=== PATIENT | female | born 1995 | race Two or more races ===

== ENCOUNTER 2016-03-13 15:05 | Emergency (ER) | payer OTHER ==
[~2016-03-13] VITALS: Ht 162.6 cm; Wt 63.5 kg
[~2016-03-13 15:05] MED LIST: ALBUTEROL SULF8.5 GM INH; KEFLEX500 MG ORAL; PREDNISONE20 MG ORAL
[2016-03-13] MEDS ORDERED: Lidocaine HCl 2% Jelly 5ml Tube TOPIC ONE (16:00)
--- NOTE | 2016-03-13 16:02 | Emergency Room Report ---
History of Present Illness General Chief Complaint: Pain Source: Patient Present Illness HPI 20-year-old female presents emergency department complaining of acute onset 10 / 10 in severity rectal pain from and related x2 days. Patient denies constipation reports recent episodes of diarrhea. She denies straining or heavy lifting. She reports history of hemorrhoids however states they've never been this painful. She denies blood in the stool or black tarry stools. Patient denies abdominal pain nausea, vomiting, fevers or chills. She states she's been using Preparation H with no relief. Denies CP, Palpitations, LOC, AMS , dizziness, Changes in Vision, Sensation, paresthesias, or a sudden severe headache. Allergies: Coded Allergies: No Known Allergies (Unverified , 05/17/14) Patient History Past Medical History: see triage record Past Surgical History: none Pertinent Family History: none Last Menstrual Period: 03/01/16 Now: No Reviewed Nursing Documentation: PMH: Agreed, PSxH: Agreed Nursing Documentation-PMH Hx Asthma: Yes Review of Systems All Other Systems: negative except mentioned in HPI Physical Exam Vital Signs Date Time Temp Pulse Resp B/P Pulse Ox O2 Delivery O2 Flow Rate FiO2 03/13/16 15:12 98.2 82 15 118/79 97 Room Air Sp02 EP Interpretation: reviewed, normal General Appearance: no apparent distress, alert, GCS 15, non-toxic Head: normocephalic, atraumatic Eyes: bilateral eye PERRL, bilateral eye normal inspection ENT: hearing grossly normal, normal pharynx, no angioedema, normal voice Neck: full range of motion, supple/symm/no masses Respiratory: chest non-tender, lungs clear, normal breath sounds, speaking full sentences Cardiovascular #1: regular rate, rhythm, no edema Cardiovascular #2: 2+ carotid (R), 2+ carotid (L), 2+ radial (R), 2+ radial (L) , 2+ dorsalis pedis (R), 2+ dorsalis pedis (L) Gastrointestinal: normal bowel sounds, non tender, soft, no guarding, no rebound Rectal: deferred, hemorrhoids - thrombosed purple 1cm hemorrhoid located on the 4 o"Clock position of the external anus. Genitourinary: normal inspection, no CVA tenderness Musculoskeletal: back normal, gait/station normal, normal range of motion, non- tender, no calf tenderness Neurologic: alert, oriented x3, responsive, motor strength/tone normal, sensory intact, speech normal Psychiatric: judgement/insight normal, memory normal, mood/affect normal, no suicidal/homicidal ideation Reflexes: 4+ bicep (R), 4+ bicep (L), 4+ tricep (R), 4+ tricep (L), 4+ knee (R) , 4+ knee (L) Skin: normal color, no rash, warm/dry, well hydrated Lymphatic: no adenopathy Procedures Incision and Drainage Incision and Drainage : Consent: Verbal Site: thrombosed hemorrhoid in the 4 o'clock position of the external anus Blade Size: 11 I & D Procedure: betadine prep Wound Location: other - rectum Wound's Depth, Shape: superficial Wound Length (cm): 0 Wound Explored: large clot is removed Anesthesia: Lidocaine w/ Epi Volume Anesthetic (ccs): 2 Splint Applied?: No Sling Applied?: No Patient Tolerated: Well Complications: None Medical Decision Making PA Attestation Dr. Vasquez is my supervising Physician whom patient management has been discussed with. Diagnostic Impression: Primary Impression: Thrombosed external hemorrhoid ER Course Pt. presents to the ED c/o rectal pain with tender swollen hemorrhoid in pain x 2 days. - Denies blood, reports recent hx of diarrhea. Ddx considered but are not limited to constipation , anal fissure, perianal abscess, rectal wall tear, thrombosed hemorrhoid, hemorrhoid. Vital signs: are WNL, pt. is afebrile H&PE are most consistent with thrombosed hemorrhoid , no evidence of infeciton at this time. ORDERS: none required at this time. ED INTERVENTIONS: -I & D of thrombosed hemorrhoid.- see procedure note. Discussed the patient's self care interventions for hemorrhoids DISCHARGE: At this time pt. is stable for d/c to home with oral analgesia, ABX, and stool softener for PRN use. Will provide printed patient care instructions, and any necessary prescriptions. Care plan and follow up instructions have been discussed with the patient prior to discharge. Last Vital Signs Date Time Temp Pulse Resp B/P Pulse Ox O2 Delivery O2 Flow Rate FiO2 03/13/16 15:12 98.2 82 15 118/79 97 Room Air Disposition: HOME, SELF-CARE Condition: Stable Scripts Acetaminophen* (TYLENOL EXTRA STRENGTH*) 500 Mg Tablet 500 MG ORAL Q6H, #30 TAB 0 Refills Prov: Claudia Jean 03/13/16 Metronidazole* (FLAGYL*) 500 Mg Tablet 500 MG ORAL BID, #14 TAB 0 Refills Prov: Claudia Jean 03/13/16 Trimethoprim/Sulfamethoxazole 160/800* (BACTRIM DS TABLET*) 1 Each Tablet 1 TAB ORAL TWICE A DAY for 7 Days, #14 TAB Prov: Claudia Jean 03/13/16 Docusate Sodium* (COLACE*) 100 Mg Capsule 100 MG ORAL TWICE A DAY for 5 Days, #15 CAP Prov: Claudia Jean 03/13/16 Referrals: [facility] (PCP) Patient Instructions: Hemorrhoids, Surgical Procedures for Hemorrhoids, Surgical Procedures for Hemorrhoids, Care After Additional Instructions: Take medications as directed. Follow up with PCP in 3-5 days Return sooner to ED if new symptoms occur, or current symptoms become worse. Claudia Jean Mar 13, 2016 16:02
[2016-03-13] MEDS ORDERED: Lidocaine 1% 10mg/ml/Epi 0.005mg/ml 30ml vial INJ ONE (16:15)
[2016-03-13] MEDS ORDERED: BACTRIM DS TAB1 EAC1 ORAL (16:50)
[2016-03-13] MEDS ORDERED: METRONIDAZOLE500 MG ORAL (16:50)
[2016-03-13] MEDS ORDERED: COLACE100 MG ORAL (16:50)
[2016-03-13] MEDS ORDERED: TYLENOL EXTRA500 MG ORAL (16:51)
[2016-03-13 16:55] VITALS: BP 109/74
[2016-03-13] MEDS ORDERED: Bacitracin Oint UD TOPIC ONE (17:00)
== END 2016-03-13 16:59 | disposition home or self-care (01) ==
LOC: EMR 15:34
DX: K64.5 Perianal venous thrombosis (principal); J45.909 Unspecified asthma, uncomplicated
CPT/HCPCS: 10060

== ENCOUNTER 2017-08-24 13:32 | Emergency (ER) | payer SELFPAY ==
[~2017-08-24] VITALS: Ht 157.5 cm; Wt 62.1 kg
[~2017-08-24 13:32] MED LIST changes: +BACTRIM DS TAB1 EAC1 ORAL; +COLACE100 MG ORAL; +METRONIDAZOLE500 MG ORAL; +TYLENOL EXTRA500 MG ORAL
[2017-08-24 13:37] VITALS: BP 116/77
[2017-08-24] MEDS ORDERED: Lidocaine 1% MPF 10mg/ml 5ml INJ ONE (14:00)
[2017-08-24] MEDS ORDERED: Azithromycin 250mg tab ORAL ONE (14:00)
--- NOTE | 2017-08-24 14:01 | Emergency Room Report ---
History of Present Illness General Chief Complaint: Abdominal Pain Source: Patient, Medical Record Present Illness HPI 22-year-old female patient presents ER complaining of diarrhea and requesting treatment for possible STI. Reports she was sexually active about 2 weeks ago, states she denies protection. Denies any symptoms, denies dysuria, hematuria, vaginal discharge. Reports has an IUD for control. Denies concern for . denies fever, chest pain, shortness of breath, abdominal pain. Reports diarrhea for 3 days, watery. Denies recent travel or blood in his stool or diarrhea. Reports eats a lot of spicy foods. reports uses one Bactrim pill intermittently for treatment of UTI. denies vomiting. denies rash. Allergies: Coded Allergies: No Known Allergies (Unverified , 05/17/14) Patient History Past Medical History: see triage record Last Menstrual Period: 08/14/17 Reviewed Nursing Documentation: PMH: Agreed; PSxH: Agreed Nursing Documentation-PMH Past Medical History: No History, Except For Hx Asthma: Yes Review of Systems All Other Systems: negative except mentioned in HPI Physical Exam Vital Signs Date Time Temp Pulse Resp B/P (MAP) Pulse Ox O2 Delivery O2 Flow Rate FiO2 08/24/17 13:37 98.2 87 18 116/77 95 Room Air 98.2 Sp02 EP Interpretation: reviewed, normal General Appearance: well appearing, no apparent distress, alert, GCS 15, non- toxic Head: normocephalic, atraumatic Eyes: bilateral eye normal inspection, bilateral eye PERRL ENT: hearing grossly normal, normal pharynx, no angioedema, normal voice, uvula midline, moist mucus membranes Respiratory: lungs clear, normal breath sounds, no rhonchi, no respiratory distress, no accessory muscle use, no wheezing, speaking full sentences Cardiovascular #1: regular rate, rhythm, no edema Gastrointestinal: non tender, soft, no mass, non-distended, no guarding, no rebound Genitourinary: no CVA tenderness Musculoskeletal: back normal, digits/nails normal, gait/station normal, normal range of motion, non-tender Psychiatric: mood/affect normal Skin: no rash Medical Decision Making PA Attestation Dr. Pablo is my supervising Physician whom patient management has been discussed with. Diagnostic Impression: Primary Impression: Diarrhea Additional Impression: Contact with and (suspected) exposure to infections with a predominantly sexual mode of transmission ER Course Pt. presents to the ED c/o STI. Ddx considered but are not limited to gonorrhea, chalmydia, cystitis, pylonephritis. Vital signs: are WNL, pt. is afebrile ER COURSE: Ordered Azithromycin and Rocephin for coverage of gonorrhea and chlamydia. Informed patient that should report for HIV and syphilis testing, not currently being treated at this time in ER. Patient instructed to follow with STI clinic or PCP for testing. Instructed to wear condoms during sex. Instructed to avoid sexual activity for the next 2 weeks. Instructed to inform partners of need for testing and possible treatment. follow-up with PCP and/or STI clinic for testing . Diarrhea likely viral in cause. Drink plenty of fluids to avoid dehydration. No recent travel or blood in stool, does not require treatment with antibiotics. Advised patient on BRAT diet: bananas, rice, apple sauce, toast. follow-up with and request referral to GI as needed. DISCHARGE: Patient is resting comfortably, in no acute distress, nontoxic appearing, talking without difficulty. Patient to take medications as instructed Will provide with patient care instructions and any necessary prescriptions. Care plan and follow-up instructions provided. Patient instructed to follow-up with primary care provider in 3 - 5 days. Patient questions asked and answered. Patient reports understanding and agreement to treatment plan. ER precautions given. Patient instructed to return to ER immediately for any new or worsening of symptoms including but not limited to increasing SOB, persistent fever. - Please note that this Emergency Department Report was dictated using [employer] worker technology software, occasionally this can lead to erroneous entry secondary to interpretation by the dictation equipment. Last Vital Signs Date Time Temp Pulse Resp B/P (MAP) Pulse Ox O2 Delivery O2 Flow Rate FiO2 08/24/17 13:37 98.2 87 18 116/77 95 Room Air 98.2 Disposition: HOME, SELF-CARE Condition: Stable Patient Instructions: Diarrhea, Adult, [id number], Sexually Transmitted Disease, [id number] Additional Instructions: Followup with primary care provider in 3 -5 days. Followup with GI specialist. Avoid spicy and dairy foods. Drink plenty of fluids. BRAT diet: bananas, rice, apple sauce, toast. Patient questions asked and answered. ER precautions given, patient instructed to return to ER immediately for any new or worsening of symptoms. Advised to use safe sex practices including but not limited to use of condoms. Avoid sexual activity for 2 weeks. Wear condoms during sex. Instructed patient to follow up with STI clinic and/or PCP for future STI treatment and prevention. Instructed patient to inform partner of need for treatment to prevent future infection. Ashwin Ferrer Aug 24, 2017 14:01
[2017-08-24 14:17] VITALS: BP 116/77
== END 2017-08-24 14:18 | disposition home or self-care (01) ==
LOC: EMR 13:59
DX: R19.7 Diarrhea, unspecified (principal); Z20.2 Contact with and (suspected) exposure to infections with a predominantly sexual mode of transmission; J45.909 Unspecified asthma, uncomplicated
CPT/HCPCS: 96372; 96374; 99283; J0696

== ENCOUNTER 2018-03-13 15:41 | Emergency (ER) | payer SELFPAY ==
[~2018-03-13] VITALS: Ht 157.5 cm; Wt 61.2 kg
[~2018-03-13 15:41] MED LIST changes: +CEPHALEXIN500 MG ORAL; +DIFLUCAN150 MG PO
[2018-03-13] MEDS ORDERED: NKM (15:48)
--- NOTE | 2018-03-13 15:58 | Emergency Room Report ---
History of Present Illness General Chief Complaint: Upper Extremity Injury Source: Patient Present Illness HPI 22-year-old female presents to the emergency department complaining of localized 8 out of 10 in severity pain, bruising and swelling to the left wrist and hand since yesterday. Patient reports that she had a fall during the night she does not recall exactly how she fell but she states she did not hit her head and did not lose consciousness. Patient states she believes she put her hand out to the fall. Patient reports pain with movement of her fingers with attempts to extend them and with palpation. Patient has not taken any medication for her symptoms she is right-hand dominant and denies previous injury to this extremity. Denies numbness tingling or loss of sensation or gross motor movements of the extremities. Denies neck or back pain. Allergies: Coded Allergies: No Known Allergies (Unverified , 12/28/17) Patient History Past Medical History: see triage record Past Surgical History: none Pertinent Family History: none Reviewed Nursing Documentation: PMH: Agreed; PSxH: Agreed Nursing Documentation-PMH Past Medical History: No History, Except For Hx Asthma: Yes Review of Systems All Other Systems: negative except mentioned in HPI Physical Exam Vital Signs Date Time Temp Pulse Resp B/P (MAP) Pulse Ox O2 Delivery O2 Flow Rate FiO2 03/13/18 15:43 98.1 88 16 110/75 99 Sp02 EP Interpretation: reviewed, normal General Appearance: alert, GCS 15, non-toxic, mild distress Head: normocephalic, atraumatic Eyes: bilateral eye normal inspection, bilateral eye PERRL ENT: hearing grossly normal, normal voice Neck: full range of motion Respiratory: lungs clear, normal breath sounds, speaking full sentences Cardiovascular #1: regular rate, rhythm, normal capillary refill Cardiovascular #2: 2+ radial (R), 2+ radial (L) Musculoskeletal: back normal, gait/station normal, normal range of motion, tender - TTP left wrist, and carpal bones of the left hand. Swelling and bruising noted, pain with ROM. + Snuff Box TTP. Neurologic: alert, oriented x3, responsive, motor strength/tone normal, sensory intact, speech normal, grossly normal Psychiatric: judgement/insight normal Skin: normal color, no rash, warm/dry, well hydrated, other - LEft wrist and hand bruises Medical Decision Making PA Attestation Dr. Hanson is my supervising Physician whom patient management has been discussed with. Diagnostic Impression: Primary Impression: Contusion of wrist, left Qualified Codes: S60.212A - Contusion of left wrist, initial encounter Additional Impressions: Left wrist sprain Qualified Codes: S63.502A - Unspecified sprain of left wrist, initial encounter Contusion, hand Qualified Codes: S60.222A - Contusion of left hand, initial encounter ER Course 22-year-old female presents to the emergency department complaining of localized 8 out of 10 in severity pain, bruising and swelling to the left wrist and hand since yesterday. Patient reports that she had a fall during the night she does not recall exactly how she fell but she states she did not hit her head and did not lose consciousness. Patient states she believes she put her hand out to the fall. Patient reports pain with movement of her fingers with attempts to extend them and with palpation. Patient has not taken any medication for her symptoms she is right-hand dominant and denies previous injury to this extremity. Denies numbness tingling or loss of sensation or gross motor movements of the extremities. Denies neck or back pain. Ddx considered but are not limited to Fracture, dislocation, contusion, Sprain/ Strain/Spasm, scaphoid fx just to name a few. Vital signs: are WNL, pt. is afebrile H&PE are most consistent with musculoskeletal injury will perform imaging to r/ o fractures/dislocations. ---Due to patient having snuffbox tenderness she will be splinted and treated as if there is a scaphoid fracture. ORDERS: - X-ray Left hand and Wrist 3 views each. - negative for fx, Dislocation, or significant soft tissue injury, per preliminary read in ED, and signed by ERNST Jean, my supervising physician has reviewed, and agrees with my interpretation. ED INTERVENTIONS: - Tylenol PO - Thumb Spika Splint applied by morgue technician. Pt. remains neurovascularly intact. DISCHARGE: At this time pt. is stable for d/c to home. Will provide printed patient care instructions, and any necessary prescriptions. Care plan and follow up instructions have been discussed with the patient prior to discharge. Other X-Ray Diagnostic Results Other X-Ray Diagnostic Results #1: X-Ray ordered: Left WRist # of Views/Limited Vs Complete: 3 View Indication: Pain EP Interpretation: Yes ERNST Xray: Interpretation reviewed, by supervising MD, and agrees with findings. Electronically Signed by: Claudia Jean PA-C Other X-Ray Diagnostic Results #2: X-Ray ordered: Left Hand # of Views/Limited Vs Complete: 3 View Indication: Pain EP Interpretation: Yes ERNST Xray: Interpretation reviewed, by supervising MD, and agrees with findings. Interpretation: no dislocation, no soft tissue swelling, no fractures Impression: No acute disease Electronically Signed by: Claudia Jean PA-C Last Vital Signs Date Time Temp Pulse Resp B/P (MAP) Pulse Ox O2 Delivery O2 Flow Rate FiO2 03/13/18 15:43 98.1 88 16 110/75 99 Disposition: HOME, SELF-CARE Condition: Stable Scripts Ibuprofen* (MOTRIN*) 600 Mg Tablet 600 MG ORAL THREE TIMES A DAY, #30 TAB 0 Refills Prov: Claudia Jean 03/13/18 Patient Instructions: Contusion, [id number], Wrist Sprain Additional Instructions: Take medications as directed. Will need to have repeat x-rays performed by specialist or your primary care provider --> to rule out scaphoid fracture in approximately 2-3 weeks. Follow up with an YARD PERSON in 3-5 days, even if your symptoms have resolved. If symptoms persist MRI may be required at the discretion of your PCP or Ortho Specialist. --Please review list of primary care clinics, if you do not already have a primary care provider who can give you an Orthopedic Referral. Return sooner to ED if new symptoms occur, or current symptoms become worse. Do not drink alcohol, drive, or operate heavy machinery while taking Orting as this may cause drowsiness. - Please note that this Emergency Department Report was dictated using [employer] clerk technology software, occasionally this can lead to erroneous entry secondary to interpretation by the dictation equipment. Claudia Jean Mar 13, 2018 15:58
[2018-03-13 16:32] VITALS: BP 111/79
[2018-03-13] MEDS ORDERED: IBUPROFEN600 MG ORAL (16:44)
[2018-03-13 16:53] VITALS: BP 110/75
--- NOTE | 2018-03-14 08:42 | Diagnostic Imaging Report ---
Indication: Left wrist pain Findings: 3 views of the left wrist were obtained. No acute fractures, malalignment, erosions or periostitis are identified. Soft tissues are unremarkable. Impression: No acute findings.
--- NOTE | 2018-03-14 08:50 | Diagnostic Imaging Report ---
Indication: left hand pain. Findings: 3 views of the left hand were obtained. Normal alignment is demonstrated. No acute fractures, erosions, or periosteal reaction are seen. Soft tissues are unremarkable. Impression: No acute findings.
== END 2018-03-13 16:53 | disposition home or self-care (01) ==
LOC: EMR 15:54
DX: S60.212A Contusion of left wrist, initial encounter (principal); S63.502A Unspecified sprain of left wrist, initial encounter; S60.222A Contusion of left hand, initial encounter; W19.XXXA Unspecified fall, initial encounter; Y92.9 Unspecified place or not applicable
CPT/HCPCS: 29130; 99283

== ENCOUNTER 2018-06-09 15:26 | Emergency (ER) | payer MEDICAID ==
[~2018-06-09] VITALS: Ht 157.5 cm; Wt 54.4 kg
[~2018-06-09 15:26] MED LIST changes: +IBUPROFEN600 MG ORAL; +NKM
--- NOTE | 2018-06-09 15:47 | NUR ---
ED Nurse Note: pt walked in c/o lower abd pain since yesterday, pt states she has IUD in place and had sexual intercourse and started having dysuria as well, denies vaginal discharge nor bleeding, pt reports she is concerned about possible displacement of IUD. will cont monitor. ERMD at the bedside.
[2018-06-09 15:49] VITALS: BP 105/67
--- NOTE | 2018-06-09 15:54 | Emergency Room Report ---
History of Present Illness General Chief Complaint: Female Urogenital Problems Source: Patient Present Illness HPI Patient presents with 3 days of suprapubic pain and dysuria. In addition to that she had dyspareunia yesterday. She's had UTIs in the past but not had pain like this with UTIs. She denies any fevers or chills. She does feel dizzy when she stands and little bit nauseated. She has an IUD in place. Last period was normal but a long time ago. She is concerned that she might be at this time. The pain is rated 10/10. She drove herself here. No change in bowels. She has no discharge. In the past when she's had urinary tract infections there's been a discharge also. She is in a stable relationship. Last menses 6 months ago. H/O asthma - no wheezing, URI or chest pain Allergies: Coded Allergies: No Known Allergies (Unverified , 12/28/17) Patient History Past Medical History: see triage record Social History Narrative drove herself here Last Menstrual Period: IUD in place Now: No : 2 Para: 2 Reviewed Nursing Documentation: PMH: Agreed; PSxH: Agreed Nursing Documentation-PMH Hx Asthma: Yes Review of Systems All Other Systems: negative except mentioned in HPI Physical Exam Vital Signs Date Time Temp Pulse Resp B/P (MAP) Pulse Ox O2 Delivery O2 Flow Rate FiO2 06/09/18 15:35 98.1 85 18 105/67 99 Room Air Sp02 EP Interpretation: reviewed, normal General Appearance: well appearing, no apparent distress, GCS 15 Head: normocephalic Eyes: bilateral eye normal inspection, bilateral eye PERRL, bilateral eye EOMI ENT: moist mucus membranes Neck: supple Respiratory: lungs clear, normal breath sounds Cardiovascular #1: regular rate, rhythm Cardiovascular #2: 2+ radial (R) Gastrointestinal: normal inspection, normal bowel sounds, non tender, no mass, non-distended Genitourinary: ext genitalia/vag normal, other - minimal external inflammation , IUD present, + CMT Musculoskeletal: back normal, gait/station normal, normal range of motion Neurologic: alert, oriented x3 Skin: normal inspection, warm/dry Medical Decision Making Diagnostic Impression: Primary Impression: UTI (urinary tract infection) Qualified Codes: N30.00 - Acute cystitis without hematuria Additional Impressions: Pelvic pain PID (acute pelvic inflammatory disease) IUD (intrauterine device) in place ER Course Patient presents with suprapubic pain with an IUD. Differential includes UTI, PID, vaginosis, ectopic amongst others. Patient will be evaluated with labs including test. The patient will receive IV hydration as well as a dose of Tylenol. Pelvic exam is indicated. Based on pelvic exam PID is suspected. A test is not back yet. A dose of Rocephin is given IV. negative. Toradol and Flagyl given. Discussed with Dr. Baumann. States stable to observe as outpatient (particularly without fever or leukocytosis). Consideration for removal of IUD, but this can be done in follow up. Improved pain. Patient stable for outpatient observation and treatment. Laboratory Tests Test 06/09/18 16:00 White Blood Count 10.7 K/UL (4.8-10.8) Red Blood Count 4.71 M/UL (4.20-5.40) Hemoglobin 14.7 G/DL (12.0-16.0) Hematocrit 43.0 % (37.0-47.0) Mean Corpuscular Volume 91 FL (80-99) Mean Corpuscular Hemoglobin 31.2 PG (27.0-31.0) H Mean Corpuscular Hemoglobin Concent 34.2 G/DL (32.0-36.0) Red Cell Distribution Width 12.7 % (11.6-14.8) Platelet Count 210 K/UL (150-450) Mean Platelet Volume 6.1 FL (6.5-10.1) L Neutrophils (%) (Auto) 65.0 % (45.0-75.0) Lymphocytes (%) (Auto) 22.6 % (20.0-45.0) Monocytes (%) (Auto) 10.6 % (1.0-10.0) H Eosinophils (%) (Auto) 0.9 % (0.0-3.0) Basophils (%) (Auto) 0.9 % (0.0-2.0) Urine Color Yellow Urine Appearance Slightly cloudy Urine pH 7 (4.5-8.0) Urine Specific [place] 1.010 (1.005-1.035) Urine Protein 1+ (NEGATIVE) H Urine Glucose (UA) Negative (NEGATIVE) Urine Ketones 1+ (NEGATIVE) H Urine Blood 3+ (NEGATIVE) H Urine Nitrite Negative (NEGATIVE) Urine Bilirubin Negative (NEGATIVE) Urine Urobilinogen 4 MG/DL (0.0-1.0) H Urine Leukocyte Esterase 1+ (NEGATIVE) H Urine RBC 15-20 /HPF (0 - 2) H Urine WBC 5-10 /HPF (0 - 2) H Urine Squamous Epithelial Cells Few /LPF (NONE/OCC) Urine Bacteria Few /HPF (NONE) Urine Mucus Moderate /LPF (NONE/OCC) H Urine HCG, Qualitative Negative (NEGATIVE) Sodium Level 137 MMOL/L (136-145) Potassium Level 3.8 MMOL/L (3.5-5.1) Chloride Level 104 MMOL/L (98-107) Carbon Dioxide Level 25 MMOL/L (21-32) Anion Gap 8 mmol/L (5-15) Blood Urea Nitrogen 11 mg/dL (7-18) Creatinine 0.6 MG/DL (0.55-1.30) Estimate Glomerular Filtration Rate > 60 mL/min (>60) Glucose Level 97 MG/DL (74-106) Calcium Level 9.1 MG/DL (8.5-10.1) Total Bilirubin 0.3 MG/DL (0.2-1.0) Aspartate Amino Transferase (AST) 14 U/L (15-37) L Alanine Aminotransferase (ALT) 16 U/L (12-78) Alkaline Phosphatase 97 U/L (46-116) Total Protein 7.8 G/DL (6.4-8.2) Albumin 3.9 G/DL (3.4-5.0) Globulin 3.9 g/dL Albumin/Globulin Ratio 1.0 (1.0-2.7) Lipase 115 U/L (73-393) Microbiology Date/Time Source Procedure Growth Status 06/09/18 16:00 Vaginal Wet Prep - Final Complete Last Vital Signs Date Time Temp Pulse Resp B/P (MAP) Pulse Ox O2 Delivery O2 Flow Rate FiO2 06/09/18 18:59 98.7 70 16 108/94 98 Room Air Status: improved Disposition: HOME, SELF-CARE Condition: Improved Scripts Ibuprofen* (MOTRIN*) 600 Mg Tablet 600 MG ORAL Q6H PRN for For Pain, #20 TAB Prov: Rolly Turner MD 06/09/18 Tramadol Hcl* (ULTRAM*) 50 Mg Tablet 50 MG ORAL Q6H PRN for For Pain, #10 TAB 0 Refills Prov: Rolly Turner MD 06/09/18 Cephalexin* (KEFLEX*) 500 Mg Capsule 500 MG ORAL EVERY 6 HOURS, #28 CAP Prov: Rolly Turner MD 06/09/18 Metronidazole* (FLAGYL*) 500 Mg Tablet 500 MG ORAL TID, #21 TAB Prov: Rolly Turner MD 06/09/18 Rolly Turner MD Jun 09, 2018 15:54
[2018-06-09 16:24] LABS: APPEARANCE,URINE SLIGHTLY CLOUDY; BILIRUBIN, URINE NEGATIVE (NEGATIVE); GLUCOSE, URINE (UA) NEGATIVE (NEGATIVE); KETONES,URINE 1+ (NEGATIVE); LEUKOCYTE ESTERASE ,URINE 1+ (NEGATIVE); NITRITE,URINE NEGATIVE (NEGATIVE); PH,URINE 7 (4.5-8.0); PROTEIN,URINE 1+ (NEGATIVE); UROBILINOGEN,URINE 4 MG/DL (0.0-1.0)
[2018-06-09 16:29] LABS: BASOPHILS % (AUTO) 0.9 % (0.0-2.0); EOSINOPHILS % (AUTO) 0.9 % (0.0-3.0); HEMOGLOBIN 14.7 G/DL (12.0-16.0); LYMPHOCYTES % (AUTO) 22.6 % (20.0-45.0); MEAN CORPUSCULAR VOLUME 91 FL (80-99); MONOCYTES % (AUTO) 10.6 % (1.0-10.0); PLATELET COUNT 210 K/UL (150-450); RED BLOOD COUNT 4.71 M/UL (4.20-5.40); RED CELL DISTRIBUTION WIDTH 12.7 % (11.6-14.8); WHITE BLOOD COUNT 10.7 K/UL (4.8-10.8)
[2018-06-09 16:30] LABS: COLOR,URINE YELLOW
[2018-06-09] MEDS ORDERED: cefTRIAXone 1 GM in NS 55 ML IVPB ONE (16:30)
[2018-06-09 16:35] LABS: ANION GAP 8 mmol/L (5-15); BLOOD UREA NITROGEN 11 mg/dL (7-18); CALCIUM 9.1 MG/DL (8.5-10.1); CARBON DIOXIDE 25 MMOL/L (21-32); CHLORIDE 104 MMOL/L (98-107); CREATININE 0.6 MG/DL (0.55-1.30); POTASSIUM 3.8 MMOL/L (3.5-5.1); SODIUM 137 MMOL/L (136-145)
[2018-06-09 16:39] LABS: ALANINE AMINOTRANSFERASE 16 U/L (12-78); ALBUMIN 3.9 G/DL (3.4-5.0); ALKALINE PHOSPHATASE 97 U/L (46-116); ASPARTATE AMINO TRANSFERASE 14 U/L (15-37); BILIRUBIN,TOTAL 0.3 MG/DL (0.2-1.0)
[2018-06-09] MEDS ORDERED: Ketorolac 30mg Inj IV ONE (16:45)
[2018-06-09] MEDS ORDERED: METRONIDAZOLE500 MG ORAL (17:49)
[2018-06-09] MEDS ORDERED: IBUPROFEN600 MG ORAL (17:49)
[2018-06-09] MEDS ORDERED: TRAMADOL HCL50 MG ORAL (17:49)
[2018-06-09] MEDS ORDERED: CEPHALEXIN500 MG ORAL (17:49)
[2018-06-09 18:59] VITALS: BP 108/94
--- NOTE | 2018-06-09 19:00 | NUR ---
ED Nurse Note: pt cleared to be d/c per ERMD, pt d/c and aftercare instruction provided w/ prescription, pt education done via discussion and handout, pt advised to follow up with proof operator or return to ed if sx worsen or new sx develop, pt verbalized understanding and agrees with plan, vss, ambulatory w/ steady gait, iv d/c and wristband removed, pt left w/ all belongings.
== END 2018-06-09 18:59 | disposition home or self-care (01) ==
LOC: EMR 16:31
DX: N30.00 Acute cystitis without hematuria (principal); N73.9 Female pelvic inflammatory disease, unspecified; Z97.5 Presence of (intrauterine) contraceptive device; J45.909 Unspecified asthma, uncomplicated
CPT/HCPCS: 36415; 80053; 81003; 81025; 83690; 85025; 87210; 96361; 96365; 96368; 96375; 99284; J0696; J1885

== ENCOUNTER 2019-12-30 19:29 | Emergency (ER) | payer MEDICAID ==
[~2019-12-30] VITALS: Ht 162.6 cm; Wt 63.5 kg
[~2019-12-30 19:29] MED LIST changes: +TRAMADOL HCL50 MG ORAL
[2019-12-30 19:45] VITALS: BP 125/65
[2019-12-30] MEDS ORDERED: Lidocaine 1% MPF 10mg/ml 5ml INJ ONE (19:45)
[2019-12-30] MEDS ORDERED: Azithromycin 250mg tab ORAL ONE (19:45)
[2019-12-30] MEDS ORDERED: Fluconazole 150mg tab ORAL ONE (19:45)
--- NOTE | 2019-12-30 19:45 | NUR ---
ED Nurse Note: Patient walked into ED c/o vaginal pain and dysuria onset for a couple of days now. patient rates her pain a 4/10 pain. patient reports of onset of symptoms after having unprotected sex. patient is alert and oriented x4. patient denies any other symptos at this time. patient was able to urinate and able to give sample however reports of pain. will wait for further orders
[2019-12-30 21:14] LABS: APPEARANCE,URINE CLEAR; BILIRUBIN, URINE NEGATIVE (NEGATIVE); GLUCOSE, URINE (UA) NEGATIVE (NEGATIVE); KETONES,URINE 3+ (NEGATIVE); LEUKOCYTE ESTERASE ,URINE 1+ (NEGATIVE); NITRITE,URINE NEGATIVE (NEGATIVE); PH,URINE 6 (4.5-8.0); PROTEIN,URINE NEGATIVE (NEGATIVE); UROBILINOGEN,URINE 1 MG/DL (0.0-1.0)
[2019-12-30 21:17] LABS: COLOR,URINE YELLOW
--- NOTE | 2019-12-30 21:23 | Emergency Room Report ---
History of Present Illness General Chief Complaint: Female Urogenital Problems Present Illness HPI 24-year-old female with no significant past medical history here complaining of 2 weeks of dysuria, suprapubic pain, lower back pain, vaginal discharge and pruritus. Reports this started after being sexually active. Patient has already been seen by primary doctor and was prescribed Flagyl however reports is not helping her symptoms. Denies any hematuria, abdominal pain, nausea vomiting, fever and chills. Reports that she is sexually active without protect ion. Patient had an IUD placed however reports that it was placed in 4 years ago and was supposed to be taken out this year. Denies at this time. Denies chest pain, shortness of breath, headache and dizziness. Allergies: Coded Allergies: No Known Allergies (Unverified , 12/28/17) COVID-19 Screening Contact w/high risk pt: No Experienced COVID-19 symptoms?: No COVID-19 Testing performed INSURANCE ADJUSTOR: No Patient History Pertinent Family History: none Last Menstrual Period: july 2019 Now: No Immunizations: UTD Reviewed Nursing Documentation: PMH: Agreed; PSxH: Agreed Nursing Documentation-PMH Hx Asthma: Yes Review of Systems All Other Systems: negative except mentioned in HPI Physical Exam Vital Signs Date Time Temp Pulse Resp B/P (MAP) Pulse Ox O2 Delivery O2 Flow Rate FiO2 12/30/19 19:33 98.8 93 16 118/68 (85) 99 Room Air Sp02 EP Interpretation: reviewed, normal General Appearance: no apparent distress, alert, GCS 15, non-toxic Head: normocephalic Eyes: bilateral eye normal inspection, bilateral eye PERRL ENT: hearing grossly normal, normal pharynx, no angioedema, normal voice Neck: full range of motion, supple/symm/no masses Respiratory: chest non-tender, lungs clear, normal breath sounds, speaking full sentences Cardiovascular #1: regular rate, rhythm, no edema Gastrointestinal: normal bowel sounds, non tender, soft, non-distended, no guarding, no rebound Rectal: deferred Genitourinary: no CVA tenderness Musculoskeletal: back normal Neurologic: alert, motor strength/tone normal, oriented x3, sensory intact, responsive, speech normal Psychiatric: judgement/insight normal, memory normal, mood/affect normal, no suicidal/homicidal ideation Skin: no rash Lymphatic: no adenopathy Medical Decision Making PA Attestation ALL Diagnosis and treatment plan reviewed and discussed with my supervising physician Dr. Mnan Diagnostic Impression: Primary Impression: Vaginal discharge Additional Impression: UTI (urinary tract infection) ER Course 24-year-old female with no significant past medical history here complaining of 2 weeks of dysuria, suprapubic pain, lower back pain, vaginal discharge and pruritus. Reports this started after being sexually active. Patient has already been seen by primary doctor and was prescribed Flagyl however reports is not helping her symptoms. Denies any hematuria, abdominal pain, nausea vomiting, fever and chills. Reports that she is sexually active without protection. Patient had an IUD placed however reports that it was placed in 4 years ago and was supposed to be taken out this year. Denies at this time. Denies chest pain, shortness of breath, headache and dizziness. Ddx considered but are not limited to: vaginitis, yeast infection, BV, chlamydia, Gonorrhea, syphilis, HIV, herpes 1 or 2, UTI Vital signs: are WNL, pt. is afebrile H&PE are most consistent with : Vaginal discharge, UTI ORDERS: UA, urince cx, urine test, Keflex ED INTERVENTIONS: Rocephin, azithromycin, Diflucan At this time penicillin G is backordered advised patient to go to [facility] clinics for further testing and evaluation. DISCHARGE: At this time pt. is stable for d/c to home. Will provide printed patient care instructions, and any necessary prescriptions. Care plan and follow up instructions have been discussed with the patient prior to discharge. Condom use advised, follow-up with primary doctor and [employer], if worsening symptoms return to the emergency room Last Vital Signs Date Time Temp Pulse Resp B/P (MAP) Pulse Ox O2 Delivery O2 Flow Rate FiO2 12/30/19 19:33 98.8 93 16 118/68 (85) 99 Room Air Disposition: HOME, SELF-CARE Condition: Stable Scripts Cephalexin* (KEFLEX*) 500 Mg Capsule 500 MG ORAL EVERY 12 HOURS for 7 Days, #14 CAP 0 Refills Prov: Anish Child 12/30/19 Referrals: [facility] (PCP) Patient Instructions: Vaginitis, Urinary Tract Infection Additional Instructions: Take medication as directed, follow-up with your primary care provider, if worsening symptoms return to the emergency Anish Child Dec 30, 2019 21:23
[2019-12-30] MEDS ORDERED: CEPHALEXIN500 MG ORAL (21:24)
[2019-12-30 21:30] VITALS: BP 114/70
--- NOTE | 2019-12-30 21:30 | NUR ---
ED Nurse Note: Pt cleared by health care Provider for discharge. DC instructions/prescription was given and explained to pt and verbalized understanding of teachings. Instructed pt to follow up with primary care physicain/ OBGYN within 3-7 days. All medical deviecs such as ID band removed. Pt is AAO x4, ambulatory and left with all personal belongings.
== END 2019-12-30 21:30 | disposition home or self-care (01) ==
LOC: EMR 19:45
DX: N39.0 Urinary tract infection, site not specified (principal); N89.8 Other specified noninflammatory disorders of vagina; Z97.5 Presence of (intrauterine) contraceptive device
CPT/HCPCS: 81003; 81025; 96372; J0696; Q0144; Z7502; 99283